=== PATIENT | female | born 1995 | race Caucasian/White ===

== ENCOUNTER 2019-12-24 00:16 | Emergency (ER) | END 2019-12-24 01:00 | disposition left against medical advice (07) | LOC: ER 00:16 | DX: Z53.21 Procedure and treatment not carried out due to patient leaving prior to being seen by health care provider (principal) ==

== ENCOUNTER 2020-01-10 02:14 | Emergency (ER) | payer BC, OTHER ==
--- NOTE | 2020-01-10 04:31 | ER Document Report ---
ED General - General Chief Complaint: Skin Problem Stated Complaint: REPORTS WORMS IN ANUS Time Seen by Provider: 01/10/20 04:05 Primary Care Provider: ARASH MC NP [Primary Care Provider] - Follow up as needed Notes: Patient is a 24-year-old female that comes emergency department with chief complaint of possibly having a parasite. She states that she saw something coming out of her rectum within the past couple of days, she states that she gets sensations especially while she is lying down and there is something crawling up to the top of her throat, she states that she ate garlic which is supposed to be "antiparasitic" and she states when she did so she "feels like I pissed them off in the were crawling around like crazy up in my neck and throat areas". She states she also has been having intermittent headaches more often than usual, she states earlier she had an episode where she felt like she could not focus and she had trouble finding her words. Patient states that she went to one emergency department and they told her they could not test her for parasites at that facility specifically, she states she called the emergency hotline and she states that the emergency provider on the hotline told her that "I might have a parasite and I should go to an emergency department". She denies current headache, she denies fever, she denies chest pain, shortness of breath, abdominal pain, vomiting, fever. She states she has a lot of sushi but denies concerning foods or exposures otherwise. She denies recreational drugs, she smokes, she denies alcohol. She denies any medications other than BuSpar, denies any medical history other than diagnosed depression. - Related Data Allergies/Adverse Reactions: No Known Allergies Allergy (Verified 01/10/20 02:51) Home Medications: buspar Past Medical History - General Information source: Patient - Social History Smoking Status: Current Some Day Smoker Frequency of alcohol use: None Drug Abuse: None Lives with: Family Family History: Reviewed & Not Pertinent Psychiatric Medical History: Reports: Hx Depression - Immunizations Immunizations up to date: Yes Hx Diphtheria, Pertussis, Tetanus Vaccination: Yes Review of Systems - Review of Systems Constitutional: See HPI EENT: See HPI Cardiovascular: No symptoms reported Respiratory: No symptoms reported Gastrointestinal: See HPI Genitourinary: No symptoms reported Female Genitourinary: No symptoms reported Musculoskeletal: No symptoms reported Skin: No symptoms reported Hematologic/Lymphatic: No symptoms reported Neurological/Psychological: See HPI Physical Exam - Vital signs Vitals: Temp Pulse Resp BP Pulse Ox 98.0 F 91 17 117/87 H 97 01/10/20 02:26 01/10/20 02:26 01/10/20 02:26 01/10/20 02:26 01/10/20 02:26 - Notes Notes: GENERAL: Alert, no signs of distress HEAD: Normocephalic, atraumatic. EYES: Pupils equal, round, and reactive to light. Extraocular movements intact. ENT: Oral mucosa moist, tongue midline. Oropharynx unremarkable. Airway patent. NECK: Full range of motion. Supple. Trachea midline. No lymphadenopathy. LUNGS: Clear to auscultation bilaterally, no wheezes, rales, or rhonchi. No respiratory distress. Non-tender chest wall. HEART: Regular rate and rhythm. No murmur ABDOMEN: Soft, non-tender. Non-distended. Bowel sounds present in all 4 quadra nts. GENITOURINARY: Deferred EXTREMITIES: Moves all 4 extremities spontaneously. No edema, normal radial and dorsalis pedis pulses bilaterally. No cyanosis. BACK: no cervical, thoracic, lumbar midline tenderness. No saddle anesthesia, normal distal neurovascular exam. Moves all extremities in full range of motion. NEUROLOGICAL: Alert and oriented x3. Normal speech. Cranial nerves II through XII grossly intact. Strength 5/5 in all extremities. PSYCH: Initially very anxious and talking very rapidly SKIN: Warm, dry, normal turgor. No rashes or lesions noted. Course - Re-evaluation Re-evalutation: Patient was initially very anxious about the possibilities of her having a parasite and she spoke anxiously in the beginning. However I did attempt to reassure her. She has a normal neurologic exam, no headache, no fever, she is completely nontoxic in appearance, vital signs are unremarkable. CBC unremarkable with no eosinophilic shift, chemistry unremarkable, negative. I did recommend we obtain a stool sample from the patient to attempt to evaluate her complaint, when she did provide a sample in the collection specimen there did appear to be roundworms noted. As result I do suspect patient has an intestinal parasite but I do not suspect parasite otherwise or concerning infection. I did agree to treat her with albendazole pending ova and parasite testing upon patient request for testing now. Patient with no complaints or symptoms on my reevaluation, she states appreciation and agreement. Stable at time of discharge. - Vital Signs Vital signs: Temp Pulse Resp BP Pulse Ox 98.0 F 84 15 116/56 L 100 01/10/20 02:26 01/10/20 06:19 01/10/20 06:19 01/10/20 06:19 01/10/20 06:19 - Laboratory Result Diagrams: 01/10/20 04:42 01/10/20 04:42 Discharge - Discharge Clinical Impression: Presence of parasites in stool Condition: Stable Disposition: HOME, SELF-CARE Additional Instructions: Your laboratory work-up does not show any concerning findings. Based on your evaluation I do suspect that you have an intestinal parasite, possibly roundworm, however I do believe this is limited to the gastrointestinal system based on your symptoms and work-up. I recommend the medication as prescribed to kill this. We do have ova and parasite testing pending in the lab as well. Return to the emergency department for any concerning symptoms including fever, vomiting, severe abdominal pain, or any other concerning or worsening symptoms. Prescriptions: Albendazole [Albenza] 400 mg PO ONCE PRN 1 Days #2 tablet PRN Reason: Forms: Return to Work Referrals: ARASH MC NP [Primary Care Provider] - Follow up as needed
[2020-01-10 05:28] LABS: ABSOLUTE EOSINOPHILS # (AUTO) 0.1 10^3/uL (0.0-0.6); ABSOLUTE LYMPHOCYTES (AUTO) 1.7 10^3/uL (0.5-4.7); ABSOLUTE MONOCYTES (AUTO) 0.4 10^3/uL (0.1-1.4); ABSOLUTE NEUT (AUTO) 3.7 10^3/uL (1.7-8.2); BASOPHILS % (AUTO) 0.1 % (0-2); EOSINOPHILS % (AUTO) 1.3 % (0-6); HEMATOCRIT 37.8 % (36.0-47.0); HEMOGLOBIN 13.2 g/dL (12.0-15.5); LYMPHOCYTES % (AUTO) 28.5 % (13-45); MEAN CORPUSCULAR HEMOGLOBIN 29.3 pg (27.0-33.4); MEAN CORPUSCULAR VOLUME 84 fl (80-97); PLATELET COUNT 186 10^3/uL (150-450); RED BLOOD COUNT 4.52 10^6/uL (3.72-5.28); RED CELL DISTRIBUTION WIDTH 12.9 % (11.5-14.0); SEGMENTED NEUTROPHILS % (AUTO) 63.1 % (42-78); TOTAL CELLS COUNTED % (AUTO) 100 %; WHITE BLOOD COUNT 5.8 10^3/uL (4.0-10.5)
[2020-01-10 05:34] LABS: ALBUMIN 4.4 g/dL (3.5-5.0); ALKALINE PHOSPHATASE 79 U/L (38-126); ANION GAP 10 (5-19); ASPARTATE AMINO TRANSFERASE 18 U/L (14-36); BILIRUBIN,DIRECT 0.2 mg/dL (0.0-0.4); BILIRUBIN,TOTAL 0.4 mg/dL (0.2-1.3); BLOOD UREA NITROGEN 10 mg/dL (7-20); CALCIUM 9.6 mg/dL (8.4-10.2); CARBON DIOXIDE 23 mmol/L (22-30); CHLORIDE 106 mmol/L (98-107); GLUCOSE 95 mg/dL (75-110); TOTAL PROTEIN 7.2 g/dL (6.3-8.2)
[2020-01-10 06:20] VITALS: BP 116/56
== END 2020-01-10 06:20 | disposition home or self-care (01) ==
LOC: ER 02:14
DX: B88.8 Other specified infestations (principal); F41.9 Anxiety disorder, unspecified; F17.200 Nicotine dependence, unspecified, uncomplicated
CPT/HCPCS: 36415; 80053; 84703; 85025; 87177; 99283

== ENCOUNTER 2020-01-13 18:54 | Emergency (ER) | payer BC, OTHER ==
[2020-01-13 19:03] VITALS: BP 115/69
--- NOTE | 2020-01-13 19:14 | ER Document Report ---
ED Medical Screen (RME) - General Chief Complaint: Foreign Body Stated Complaint: FOREIGN BODY Time Seen by Provider: 01/13/20 19:12 Primary Care Provider: ARASH MC NP [Primary Care Provider] - Follow up as needed Mode of Arrival: Ambulatory Information source: Patient Notes: 24-year-old female presents to ED for feeling like there is bugs crawling on her hands. She states she was seen here several days ago and tested for Covid. States that that test was negative so both negative at that time. Did not urinate in a repeat study she states he needs to have the bugs and the medicine that they gave her did not help. The results of the ova and parasite said that one stool was not definitive that she should have a second specimen. I have ordered a second test. I have greeted and performed a rapid initial assessment of this patient. A comprehensive ED assessment and evaluation of the patient, analysis of test results and completion of medical decision making process will be conducted by an additional ED providers. - HPI Onset: Last week Onset/Duration: Persistent Quality of pain: No pain Severity: None Pain Level: Denies Associated Symptoms: Other - ~Like bugs crawling through her body into her heart up to her neck and in her head Exacerbated by: Denies Relieved by: Denies Similar symptoms previously: Yes Recently seen / treated by doctor: Yes - Related Data Smoking: Non-smoker Frequency of alcohol use: None Drug Abuse: None Allergies/Adverse Reactions: No Known Allergies Allergy (Verified 01/10/20 02:51) Past Medical History - General Information source: Patient - Social History Chew tobacco use (# tins/day): No Frequency of alcohol use: None Drug Abuse: None Family history: Reviewed & Not Pertinent - Past Medical History Cardiac Medical History: Reports: None Pulmonary Medical History: Reports: None EENT Medical History: Reports: None Neurological Medical History: Reports: None Endocrine Medical History: Reports: None Renal/ Medical History: Reports: None Malignancy Medical History: Reports: None GI Medical History: Reports: None Musculoskeltal Medical History: Reports None Skin Medical History: Reports None Psychiatric Medical History: Reports: Hx Anxiety, Hx Depression Traumatic Medical History: Reports: None Infectious Medical History: Reports: None Surgical Hx: Negative - Immunizations Immunizations up to date: Yes Hx Diphtheria, Pertussis, Tetanus Vaccination: Yes Physical Exam - Vital signs Vitals: Temp Pulse Resp BP Pulse Ox 97.8 F 94 16 115/69 97 01/13/20 19:01 01/13/20 19:01 01/13/20 19:01 01/13/20 19:01 01/13/20 19:01 Course - Vital Signs Vital signs: Temp Pulse Resp BP Pulse Ox 97.8 F 94 16 115/69 97 01/13/20 19:01 01/13/20 19:01 01/13/20 19:01 01/13/20 19:01 01/13/20 19:01 Doctor's Discharge - Discharge Referrals: ARASH MC, [employer] [Primary Care Provider] - Follow up as needed
[2020-01-13 20:07] LABS: APPEARANCE,URINE SLIGHTLY-CLOUDY; BILIRUBIN,URINE NEGATIVE (NEGATIVE); COLOR,URINE YELLOW; GLUCOSE, URINE NEGATIVE (NEGATIVE); KETONES,URINE NEGATIVE (NEGATIVE); LEUKOCYTE ESTERASE,URINE TRACE (NEGATIVE); NITRITE,URINE NEGATIVE (NEGATIVE); PROTEIN,URINE 30 mg/dL (NEGATIVE); URINE SPECIFIC GRAVITY 1.026; UROBILINOGEN,URINE NEGATIVE mg/dL (<2.0)
[2020-01-13 20:20] LABS: URINE AMPHETAMINES SCREEN NEGATIVE; URINE BARBITURATES SCREEN NEGATIVE; URINE BENZODIAZEPINES SCREEN NEGATIVE; URINE COCAINE SCREEN NEGATIVE; URINE MARIJUANA (THC) SCREEN NEGATIVE; URINE METHADONE SCREEN NEGATIVE; URINE PHENCYCLIDINE SCREEN NEGATIVE
--- NOTE | 2020-01-13 21:22 | ER Document Report ---
ED General - General Chief Complaint: Other Stated Complaint: FOREIGN BODY Time Seen by Provider: 01/13/20 19:12 Primary Care Provider: ARASH MC NP [Primary Care Provider] - Follow up as needed Mode of Arrival: Ambulatory Notes: 22-year-old female history of anxiety depression presents with sensation of parasites all over her body. Patient says that she feels them crawling around her face and her breathing her arms and her stool and that they are coming out in her bowel movements. Patient seen for same and had stool sample sent yesterday which they thought he may have seen a roundworm and but the results showed showed no ova or parasites. Patient has not had any recent travel, black or bloody stool, dizziness, syncope, fever, abdominal pain, SI or HI - Related Data Allergies/Adverse Reactions: No Known Allergies Allergy (Verified 01/13/20 20:36) Home Medications: BUSPARE. DEPRESSION Past Medical History - General Information source: Patient - Social History Smoking Status: Former Smoker Chew tobacco use (# tins/day): No Frequency of alcohol use: Social Drug Abuse: None Family History: Reviewed & Not Pertinent - Past Medical History Cardiac Medical History: Reports: None Pulmonary Medical History: Reports: None EENT Medical History: Reports: None Neurological Medical History: Reports: None Endocrine Medical History: Reports: None Renal/ Medical History: Reports: None Malignancy Medical History: Reports: None GI Medical History: Reports: None Musculoskeletal Medical History: Reports None Skin Medical History: Reports None Psychiatric Medical History: Reports: Hx Anxiety, Hx Depression Traumatic Medical History: Reports: None Infectious Medical History: Reports: None Surgical Hx: Negative - Immunizations Immunizations up to date: Yes Hx Diphtheria, Pertussis, Tetanus Vaccination: Yes Review of Systems - Review of Systems Notes: REVIEW OF SYSTEMS: CONSTITUTIONAL : Denies fever, chills, or sweats. EENT: Denies recent cold/sinus symptoms, denies throat pain CARDIOVASCULAR: Denies chest pain, ELSY RESPIRATORY: Denies cough, denies shortness of breath. GASTROINTESTINAL: Denies abdominal pain, nausea/vomiting. GENITOURINARY: Denies difficulty urinating, painful urination. FEMALE GENITOURINARY: Denies abnormal vaginal bleeding, vaginal discharge. MUSCULOSKELETAL: Denies neck pain, back pain. SKIN: Denies rash or skin lesions. HEMATOLOGIC : Denies easy bruising or bleeding. LYMPHATIC: Denies swollen, enlarged glands. NEUROLOGICAL: Denies headache, denies change in gait. PSYCHIATRIC: Denies SI, denies HI Physical Exam - Vital signs Vitals: Temp Pulse Resp BP Pulse Ox 97.8 F 94 16 115/69 97 01/13/20 19:01 01/13/20 19:01 01/13/20 19:01 01/13/20 19:01 01/13/20 19:01 - Notes Notes: PHYSICAL EXAMINATION: GENERAL: Well-appearing, well-nourished and in no acute distress. HEAD: Atraumatic, normocephalic. EYES: Pupils equal round and appropriate constriction, sclera anicteric, conjunctiva are normal. ENT: nares patent, moist mucous membranes, normal oropharynx NECK: Normal range of motion, supple without lymphadenopathy LUNGS: Normal respiratory rate and effort, speaking in full sentences HEART: Regular rate, no JVD, no lower extremity edema ABDOMEN: Soft, nontender, no guarding, no masses EXTREMITIES: Normal range of motion, no pitting or edema. No cyanosis. NEUROLOGICAL: Awake, alert, conversing appropriately, moves all extremities spontaneously. PSYCH: Normal mood, normal affect, concerned regarding symptoms, does not appear to be responding to any internal stimuli SKIN: Warm, Dry, normal turgor, no rashes or lesions noted. 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 Spoke to patient about following up closely with an infectious disease doctor a primary doctor and her psychiatrist regarding the symptoms which she was amenable to. Given that patient has not had any significant blood loss with this, no significant pain, and has a completely normal exam vitals and basic labs pt is appropriate for outpatient follow-up. Gave patient return to ED precautions which she demonstrated understanding of. - Vital Signs Vital signs: Temp Pulse Resp BP Pulse Ox 97.8 F 94 16 115/69 97 01/13/20 19:01 01/13/20 19:01 01/13/20 19:01 01/13/20 19:01 01/13/20 19:01 - Laboratory Laboratory results interpreted by me: 01/13/20 19:45 Urine Protein 30 H Ur Leukocyte Esterase TRACE H Discharge - Discharge Clinical Impression: Parasite not detected Disposition: HOME, SELF-CARE Additional Instructions: Follow-up within 1 week with infectious disease doctor, primary doctor, and your psychiatrist. If you have any black or bloody stool, lightheadedness or fainting, fever, confusion, thoughts of harming yourself or somebody else, or any other worsening or alarming symptoms return to the emergency department immediately. Prescriptions: Albendazole [Albenza] 200 mg PO QAM 2 Days #2 tablet Referrals: DAWSON TAO MD [NO LOCAL MD] - Follow up as needed KARYN BENAVIDEZ MD [NO LOCAL MD] - Follow up as needed TALHA DAVIS MD [TELEMEDICINE] - Follow up as needed ARASH MC NP [Primary Care Provider] - Follow up in 1 week NIDIA CASH MD [NO LOCAL MD] - Follow up in 1 week
== END 2020-01-13 22:14 | disposition home or self-care (01) ==
LOC: ER 18:54
DX: Z71.1 Person with feared health complaint in whom no diagnosis is made (principal); F22 Delusional disorders
CPT/HCPCS: 80307; 81001; 81025; 99283